=== PATIENT | male | born 1960 | race Caucasian/White ===

== ENCOUNTER 2018-03-17 13:02 | Inpatient (IN) | payer OTHER ==
[2018-03-17 13:40] VITALS: BMI 19.3
[2018-03-17] MEDS ORDERED: MAG HYDROX/AL HYDROX/SIMETH 30 ML UNIT-DOSE CUP PO PRN (14:44)
[2018-03-17] MEDS ORDERED: chlordiazePOXIDE HCL 25 MG CAPSULE PO ONE (14:44)
[2018-03-17] MEDS ORDERED: chlordiazePOXIDE HCL 25 MG CAPSULE PO PRN (14:44)
[2018-03-17] MEDS ORDERED: LOPERAMIDE HCL 2 MG CAPSULE PO PRN (14:44)
[2018-03-17] MEDS ORDERED: MAGNESIUM CITRATE 300 ML BOTTLE PO PRN (14:44)
[2018-03-17] MEDS ORDERED: IBUPROFEN 400 MG TABLET (FP) PO PRN (14:44)
[2018-03-17] MEDS ORDERED: NICOTINE POLACRILEX 4 MG GUM BUC PRN (14:44)
[2018-03-17] MEDS ORDERED: MAGNESIUM HYDROX 2400MG/30ML ORAL SUSPENSION 30 ML CUP PO PRN (14:44)
[2018-03-17] MEDS ORDERED: MENTHOL/PHENOL 1 EACH UD MM PRN (14:44)
[2018-03-17] MEDS ORDERED: hydrOXYzine PAMOATE 50 MG CAPSULE (FP) PO PRN (14:44)
[2018-03-17] MEDS ORDERED: P-EPHED 60MG/TRIPROLIDI 2.5MG TABLET PO PRN (14:44)
[2018-03-17] MEDS ORDERED: ACETAMINOPHEN 325 MG TABLET (FP) PO PRN (14:44)
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
[2018-03-17] MEDS ORDERED: ALBUTEROL SO4 2.5/IPRATROPIUM 0.5 INH SOL 3 ML VIAL.NEB. NEB ONE (15:13)
[2018-03-17] MEDS ORDERED: ALBUTEROL SO4 2.5/IPRATROPIUM 0.5 INH SOL 3 ML VIAL.NEB. NEB PRN (15:13)
[2018-03-17] MEDS: chlordiazePOXIDE HCL 25 MG CAPSULE PO SCH ×2 (17:54→22:05)
[2018-03-17] MEDS: THIAMINE HCL 100 MG TABLET (FP) PO SCH (22:05)
[2018-03-17] MEDS: MELATONIN 5 MG TABLETS PO PRN (22:06)
[2018-03-18] MEDS: chlordiazePOXIDE HCL 25 MG CAPSULE PO SCH ×4 (05:15→22:10)
[2018-03-18] MEDS: guaiFENesin/D-METHORPHAN HB 10 ML UNIT-DOSE CUPS PO PRN ×2 (05:16→22:11)
[2018-03-18] MEDS: PRENATAL VITAMINS W/ FOLIC ACID TABLET (FP) PO SCH (10:08)
[2018-03-18] MEDS: NICOTINE 21 MG/24 HOURS TOPICAL PATCH TD SCH (10:08)
[2018-03-18 11:26] LABS: ALBUMIN 2.9 g/dl (3.4-5.0); ALK PHOS 87 U/L (45-117); ANION GAP 9 MMOL/L (8-16); BILIRUBIN,TOTAL 0.7 mg/dL (0.2-1); BLOOD UREA NITROGEN 21 mg/dL (7-18); CALCIUM 8.1 mg/dL (8.5-10.1); CHLORIDE 100 mmol/L (98-107); CO2 28 mmol/L (21-32); CREATININE 0.7 mg/dL (0.55-1.3); GLUCOSE,RANDOM 144 mg/dL (74-106); POTASSIUM 3.7 mmol/L (3.5-5.1); SGOT/AST 50 U/L (15-37); SGPT/ALT 31 U/L (13-61); SODIUM 138 mmol/L (136-145); TOT PROT 5.9 g/dl (6.4-8.2)
--- NOTE | 2018-03-18 11:26 | PN ---
[facility] CIWA - CIWA Score Nausea/Vomitin Muscle Tremors: 2 Anxiety: 2 Agitation: 2 Paroxysmal Sweats: 1-Minimal Palms Moist Orientation: 0-Oriented Tacttile Disturbances: 1-Very Mild Itch/Numbness Auditory Disturbances: 1-Very Mild Visual Disturbances: 0-None Headache: 2-Mild CIWA-Ar Total Score: 13 [facility] Progress Note (SOAP) Subjective: alert,irritable,anxious,interrupted sleep,tremor Objective: 03/18/18 11:26 Vital Signs Temperature 97.1 F L 03/18/18 09:19 Pulse Rate 73 03/18/18 09:19 Respiratory Rate 16 03/18/18 09:19 Blood Pressure 131/86 03/18/18 09:19 O2 Sat by Pulse Oximetry (%) Assessment: 03/18/18 11:26 withdrawal symptom Plan: continue detox
[2018-03-18 11:30] LABS: HEMOGLOBIN 12.9 GM/dL (11.7-16.9); MCH 35.3 pg (25.7-33.7); MCHC 33.2 g/dl (32.0-35.9); MEAN CELL VOLUME 106.5 fl (80-96); MEAN PLT VOLUME 7.8 fl (7.5-11.1); PLATELET COUNT 134 K/MM3 (134-434); RBC 3.66 M/mm3 (4.00-5.60); RDW 12.9 % (11.9-15.9); WHITE BLOOD COUNT 5.6 K/mm3 (4.0-10.0)
[2018-03-18 11:32] LABS: URINE APPEARANCE SLCLOUDY; URINE BILIRUBIN NEGATIVE (<2.0 mg/dL); URINE GLUCOSE (UA) NEGATIVE (NEGATIVE); URINE KETONE NEGATIVE (NEGATIVE); URINE LEUK ESTERASE NEGATIVE (NEGATIVE); URINE NITRITE NEGATIVE (NEGATIVE); URINE PROTEIN 2+ (NEGATIVE)
[2018-03-18 11:40] LABS: URINE COLOR YELLOW
[2018-03-18] MEDS ORDERED: FLU VACCINE QUAD 60 MCG/0.5 ML (MDV 18-19) IM ONE (12:00)
[2018-03-18] MEDS ORDERED: PNEUMOC 13-VAL CONJ-DIP CRM/PF 0.5 ML DISP.SYRIN IM ONE (12:00)
[2018-03-18] MEDS ORDERED: PNEUMOCOCCAL 23 VACCINE 0.5 ML VIAL IM ONE (12:00)
[2018-03-18 12:18] LABS: CALCIUM OXALATE CRYSTALS FEW /hpf (NONE SEEN); URINE HYALINE CAST 70 /lpf; URINE MUCUS MANY
--- NOTE | 2018-03-18 15:49 | EKG ---
Test Reason : Blood Pressure : / mmHG Vent. Rate : 084 BPM Atrial Rate : 084 BPM P-R Int : 158 ms QRS Dur : 082 ms QT Int : 384 ms P-R-T Axes : 077 068 076 degrees QTc Int : 453 ms NORMAL SINUS RHYTHM NORMAL ECG NO PREVIOUS ECGS AVAILABLE Confirmed by HUNTER COLIN MD ([id number]) on 03/18/2018 3:49:09 PM Referred By: Confirmed By:HUNTER COLIN MD
[2018-03-18] MEDS: MELATONIN 5 MG TABLETS PO PRN (22:10)
[2018-03-18] MEDS: THIAMINE HCL 100 MG TABLET (FP) PO SCH (22:10)
[2018-03-18] MEDS: ALBUTEROL SO4 8 GM HFA INHALER IH PRN (23:31)
[2018-03-19] MEDS: chlordiazePOXIDE HCL 25 MG CAPSULE PO SCH ×2 (05:28→10:15)
[2018-03-19] MEDS: PRENATAL VITAMINS W/ FOLIC ACID TABLET (FP) PO SCH (10:15)
[2018-03-19] MEDS: NICOTINE 21 MG/24 HOURS TOPICAL PATCH TD SCH (10:15)
--- NOTE | 2018-03-19 13:57 | PN ---
[facility] CIWA - CIWA Score Nausea/Vomitin-No Nausea/No Vomiting Muscle Tremors: 2 Anxiety: 1-Mildly Anxious Agitation: 2 Paroxysmal Sweats: 2 Orientation: 0-Oriented Tacttile Disturbances: 0-None Auditory Disturbances: 0-None Visual Disturbances: 0-None Headache: 0-None Present CIWA-Ar Total Score: 7 S Progress Note (SOAP) Subjective: Tremor, anxious Objective: 03/19/18 13:53 Last Vital Signs Temp Pulse Resp BP Pulse Ox 97.4 F L 83 16 138/83 03/19/18 13:37 03/19/18 13:37 03/19/18 13:37 03/19/18 13:37 Laboratory Tests 03/18/18 03/18/18 03/18/18 07:30 07:30 07:30 WBC 5.6 RBC 3.66 L Hgb 12.9 Hct 39.0 MCV 106.5 H MCH 35.3 H MCHC 33.2 RDW 12.9 Plt Count 134 MPV 7.8 Sodium 138 Potassium 3.7 Chloride 100 Carbon Dioxide 28 Anion Gap 9 BUN 21 H Creatinine 0.7 Creat Clearance w eGFR > 60 Random Glucose 144 H Calcium 8.1 L Total Bilirubin 0.7 AST 50 H ALT 31 Alkaline Phosphatase 87 Total Protein 5.9 L Albumin 2.9 L Urine Color Urine Appearance Urine pH Ur Specific Maryneal Urine Protein Urine Glucose (UA) Urine Ketones Urine Blood Urine Nitrite Urine Bilirubin Urine Urobilinogen Ur Leukocyte Esterase Urine WBC (Auto) Urine RBC (Auto) Calcium Oxalate Crystal Hyaline Casts Urine Mucus RPR Titer Nonreactive 03/18/18 08:42 WBC RBC Hgb Hct MCV MCH MCHC RDW Plt Count MPV Sodium Potassium Chloride Carbon Dioxide Anion Gap BUN Creatinine Creat Clearance w eGFR Random Glucose Calcium Total Bilirubin AST ALT Alkaline Phosphatase Total Protein Albumin Urine Color Yellow Urine Appearance Slcloudy Urine pH 5.0 Ur Specific Maryneal 1.033 Urine Protein 2+ H Urine Glucose (UA) Negative Urine Ketones Negative Urine Blood Negative Urine Nitrite Negative Urine Bilirubin Negative Urine Urobilinogen 2.0 Ur Leukocyte Esterase Negative Urine WBC (Auto) 2 Urine RBC (Auto) <1 Calcium Oxalate Crystal Few Hyaline Casts 70 Urine Mucus Many RPR Titer Labs reviewed: serum glucose 144, bun 21, abnormal UA Assessment: 03/19/18 13:55 Withdrawal symptoms Noted with hyperglycemia, azotemia and abnormal UA Plan: Continue detox Hyperglycemia: probably r/t withdrawal; repeat fasting glucose Azotemia: encouraged PO water intake for hydration Abnormal UA: repeat UA
[2018-03-19] MEDS: chlordiazePOXIDE 5 MG CAPSULE PO SCH ×2 (17:18→22:11)
[2018-03-19] MEDS: ALBUTEROL SO4 8 GM HFA INHALER IH PRN (17:19)
[2018-03-19] MEDS: MELATONIN 5 MG TABLETS PO PRN (22:11)
[2018-03-19] MEDS: THIAMINE HCL 100 MG TABLET (FP) PO SCH (22:11)
[2018-03-20] MEDS: chlordiazePOXIDE 5 MG CAPSULE PO SCH ×2 (05:09→10:02)
[2018-03-20 09:09] VITALS: BP 135/94; PULSE 111; TEMP 97.2
[2018-03-20] MEDS: NICOTINE 21 MG/24 HOURS TOPICAL PATCH TD SCH (10:02)
[2018-03-20] MEDS: PRENATAL VITAMINS W/ FOLIC ACID TABLET (FP) PO SCH (10:02)
--- NOTE | 2018-03-20 13:19 | PN ---
[facility] Progress Note (SOAP) Subjective: sweats requesting early discharge today instead of tomorrow () when transportation will be difficult. Objective: 03/20/18 13:14 A & O x 3 gait steady Vital Signs Temperature 97.2 F L 03/20/18 09:09 Pulse Rate 111 H 03/20/18 09:09 Respiratory Rate 18 03/20/18 09:09 Blood Pressure 135/94 03/20/18 09:09 O2 Sat by Pulse Oximetry (%) tachycardiac- denies chest pains nor discomfort Assessment: 03/20/18 13:17 withdrawals sx Plan: for discharge today
--- NOTE | 2018-03-20 13:19 | DS ---
[facility] Detox Discharge Summary Admission Date: 03/17/18 Discharge Date: 03/20/18 - History Additional Comments: pt d/c today per his request (pls see progress note). In no acute distress Declines albuterol refill stating "i dont use it that much and I still have a lot left" Pt will do aftercare by attending outpt rehab at [facility], [address] [place] [address] Wll also attempt t get matched with a PCP at the center. - Physical Exam Results Vital Signs: Vital Signs Temperature 97.2 F L 03/20/18 09:09 Pulse Rate 111 H 03/20/18 09:09 Respiratory Rate 18 03/20/18 09:09 Blood Pressure 135/94 03/20/18 09:09 O2 Sat by Pulse Oximetry (%) - Medication Discharge Medications: Ambulatory Orders Albuterol Sulfate Inhaler - [Ventolin Hfa Inhaler -] 2 inh PO Q4H PRN 03/17/18
[2018-03-20] MEDS ORDERED: chlordiazePOXIDE HCL 10 MG CAPSULE PO SCH (17:00)
== END 2018-03-20 12:22 | disposition home or self-care (01) | DRG 897 ==
LOC: YASAS 13:02 → Y3N 15:03 → EDBD 15:03
PROC: HZ2ZZZZ Detoxification Services for Substance Abuse Treatment (ICD-10-PCS; principal; 2018-03-17)
DX: F10.230 Alcohol dependence with withdrawal, uncomplicated (principal); F17.210 Nicotine dependence, cigarettes, uncomplicated; J45.909 Unspecified asthma, uncomplicated; R82.90 Unspecified abnormal findings in urine; R79.89 Other specified abnormal findings of blood chemistry; R73.9 Hyperglycemia, unspecified; R00.0 Tachycardia, unspecified; Z88.0 Allergy status to penicillin
CPT/HCPCS: 36415; 80053; 81003; 81015; 82947; 85027; 86593; 90688; 90732; 93005; 93010; G0008; G0009